=== PATIENT | male | born 1990 | race Caucasian/White ===

== ENCOUNTER 2020-03-29 12:03 | Day surgery (SDC) | payer OTHER ==
[2020-03-21 11:30] LABS: BASOPHILS % (AUTO) 0.7 % (0-1); EOSINOPHILS # (AUTO) 0.1 X10'3 (0-0.9); EOSINOPHILS % (AUTO) 1.8 % (0-6); LYMPHOCYTES # (AUTO) 1.9 X10'3 (1.1-4.8); LYMPHOCYTES % (AUTO) 25.5 % (21-51); MEAN CORPUSCULAR HEMOGLOBIN 28.9 PG (27.0-31.0); MEAN CORPUSCULAR HGB CONC 33.6 g/dL (33.0-36.5); MEAN CORPUSCULAR VOLUME 85.9 FL (78-98); MEAN PLATELET VOLUME 7.9 FL (7.4-10.4); MONOCYTES # (AUTO) 0.7 X10'3 (0-0.9); MONOCYTES % (AUTO) 9.4 % (2-12); NEUTROPHILS # (AUTO) 4.6 X10'3 (1.8-7.7); NEUTROPHILS % (AUTO) 62.6 % (42-75); PRE OP HEMATOCRIT 46.6 % (42.0-52.0); PRE OP HEMOGLOBIN 15.7 g/dL (14.0-17.9); PRE OP PLATELET COUNT 289 X10'3 (140-440); RED BLOOD COUNT 5.42 X10'6 (4.70-6.10); RED CELL DISTRIBUTION WIDTH 13.5 % (11.5-14.5)
[2020-03-21 11:45] LABS: ALBUMIN 4.4 G/DL (3.4-5.0); ALBUMIN/GLOBULIN RATIO 1.3 (1.1-1.5); ALKALINE PHOSPHATASE 97 IU/L (46-116); BLOOD UREA NITROGEN 20 MG/DL (7-18); BUN/CREATININE RATIO 18.2 (5.4-32.0); CALCIUM 8.9 MG/DL (8.5-10.1); CHLORIDE 102 MMOL/L (99-107); PRE OP ALT 77 U/L (30-65); PRE OP ANION GAP 7 (8-16); PRE OP AST 39 U/L (10-37); PRE OP BILIRUB, TOTAL 0.6 MG/DL (0.0-1.0); PRE OP GLUCOSE 84 MG/DL (70-104); PRE OP POTASSIUM 3.6 MMOL/L (3.4-5.1); PRE OP SODIUM 138 MMOL/L (135-145); TOTAL CARBON DIOXIDE 28.9 MMOL/L (24-32); TOTAL PROTEIN 7.7 G/DL (6.4-8.2); eGFR 79 ML/MIN
[~2020-03-29] VITALS: Ht 170.2 cm; Wt 105.2 kg
[2020-03-29] VITALS (9 sets, daily range): BP systolic 124–147; BP diastolic 78–95
[~2020-03-29 12:03] MED LIST: NO HOME MEDS; ceFAZolin 2gm in dextrose, iso 50 ML IV ONE; famotidine 20mg tablet PO ONE; ringers solution, lacted 1,000 ML IV SCH; vancomycin 1,500 MG in NS 300ml IV soln IV ONE
[2020-03-29] MEDS ORDERED: proCHLORperazine 10 MG/2 ml inj IV PRN (13:15)
[2020-03-29] MEDS ORDERED: morphine 2 MG/ML inj. syringe IV PRN (13:15)
[2020-03-29] MEDS ORDERED: fentaNYL/PF 50MCG/1 ML 2ML syringe IV PRN ×2 (13:15)
[2020-03-29] MEDS ORDERED: acetaminophen 1,000mg/100ml IV 100 ML IV PRN (13:15)
[2020-03-29] MEDS ORDERED: meperidine/PF 25mg/ml syringe IV PRN (13:15)
[2020-03-29] MEDS ORDERED: ringers solution, lacted 1,000 ML IV SCH (13:15)
[2020-03-29] MEDS ORDERED: ondansetron/PF 4mg/2ml inj IV PRN (13:15)
[2020-03-29] MEDS ORDERED: morphine 4 MG/ML inj SYRINge IV PRN (13:15)
[2020-03-29] MEDS ORDERED: BUPIVAcaine/PF 2.5 mg/ml (0.25%) 30ml vial ONE (14:12)
[2020-03-29] MEDS ORDERED: methylPREDNISolone sod succ 125mg/2ml vial ONE (14:12)
[2020-03-29] MEDS ORDERED: LIDOcaine 0.5% (5mg/ml) 50ml vial ONE (14:55)
[2020-03-29] MEDS ORDERED: fentaNYL/PF 50MCG/1 ML 2ML syringe ONE (14:59)
[2020-03-29] MEDS ORDERED: midazolam 2 mg/2 ml injection ONE (15:12)
[2020-03-29] MEDS ORDERED: propofol inj 20 ML IV ONE (15:30)
--- NOTE | 2020-03-29 15:46 | NUR ---
Received from OR via [facility], accompanied by Anesthesiologist DR CLEMENTS and report given by Anesthesiologist. PT DROWSY, DENIES PAIN, LEFT HAND/WRIST TO ELBOW W/BIAS DRSG COVERING INCISION/DRSG CDI. PT ABLE TO WIGGLE FINGERS, FINGERS PWD, FAMILY MEDIATOR 1-2 SECONDS. Addendum: 03/29/20 at 1620 by Cathleen Eid RN Amended: Links added.
--- NOTE | 2020-03-29 17:36 | NUR ---
Pt discharged by wheelchair to vehicle without incident. Pt alert and oriented. All belongings returned to patient and IV was DC'd. Finger remains able to move dressing CDI. Discharge instructions reviewed with mother at vehicle. They both verbalized understanding. Pt has pain script at home.
== END 2020-03-29 17:36 | disposition home or self-care (01) ==
LOC: PAS 12:03
PROVIDERS: ATTEND Orthopaedic Surgery
DX: G56.02 Carpal tunnel syndrome, left upper limb (principal); G56.22 Lesion of ulnar nerve, left upper limb; G47.33 Obstructive sleep apnea (adult) (pediatric); F84.5 Asperger's syndrome; G89.29 Other chronic pain; E66.8 Other obesity; Z68.35 Body mass index [BMI] 35.0-35.9, adult; Z79.899 Other long term (current) drug therapy; Z20.828 Contact with and (suspected) exposure to other viral communicable diseases; Z85.05 Personal history of malignant neoplasm of liver; Z98.890 Other specified postprocedural states
CPT/HCPCS: 36415; 64719; 64721; 80053; 82948; 85025; 87635; A6222; C9803; J2001; J2250; J2704; J2930; J3010; J3370; J3490; J7040; A4215; A6449; A7000; J7120